=== PATIENT | female | born 1995 | race Caucasian/White ===

== ENCOUNTER 2021-07-18 10:12 | Emergency (ER) | payer OTHER ==
[~2021-07-18] VITALS: Ht 165.1 cm; Wt 51.3 kg
[2021-07-18 10:17] VITALS: BP 121/64
--- NOTE | 2021-07-18 10:45 | NUR ---
26 Y/O F BIB SELF FROM HOME, C/O N&V WITH BLOOD IN EMESIS AND NOSE BLEEDS THAT STARTED TODAY. 10 WEEKS , DISCHARGE, BUT NO BLEEDING. DENIES PAIN AT THIS TIME. DENIES CP, COUGH, CHILLS, FEVERS, SOB, HEMATURIA, DYSURIA, DOUBLE VISION, BLURRY VISION. PMH: DENIES MED: PRENATALS, ANTINAUSEA MEDICATION NKA
--- NOTE | 2021-07-18 10:45 | NUR ---
DR FAY AT BEDSIDE EXAMINING PT
[2021-07-18] MEDS ORDERED: NACL 0.9% 2,000 ML IV ONE (10:55)
[2021-07-18 11:05] LABS: BASOPHILS % (AUTO) 0.3 % (0.0-2.0); EOSINOPHILS % (AUTO) 0.7 % (0.0-4.0); HEMOGLOBIN 12.6 g/dL (12.0-16.0); LYMPHOCYTES % (AUTO) 17.9 % (20.5-51.1); MEAN CORPUSCULAR HEMOGLOBIN 32 pg (27-31); MEAN CORPUSCULAR HGB CONC 34 g/dL (33-37); MEAN CORPUSCULAR VOLUME 94.3 fL (80-94); MONOCYTES # (AUTO) 0.3 K/uL (0.8-1.0); MONOCYTES % (AUTO) 6.1 % (1.7-9.3); NEUTROPHILS # (AUTO) 4.1 K/uL (1.8-7.7); PLATELET COUNT (AUTO) 222 K/uL (140-450); RED BLOOD CELL COUNT(AUTO) 3.92 MIL/uL (4.20-5.40); RED CELL DISTRIBUTION WIDTH 12.2 % (11.6-13.7); WHITE BLOOD COUNT (AUTO) 5.5 K/uL (4.8-10.8)
[2021-07-18 11:18] LABS: APPEARANCE,URINE CLEAR (CLEAR); BILIRUBIN,URINE NEGATIVE (NEGATIVE); BLOOD, URINE NEGATIVE (NEGATIVE); COLOR,URINE YELLOW (YELLOW); LEUKOCYTE ESTERASE ,URINE NEGATIVE (NEGATIVE); NITRITE, URINE NEGATIVE (NEGATIVE); UGLUCOSE NEGATIVE (NEGATIVE)
[2021-07-18 11:27] LABS: ALBUMIN 3.5 g/dL (3.4-5.0); ANION GAP 13.6 (8-16); CARBON DIOXIDE 24.2 mmol/L (21-32); CREATININE 0.6 mg/dL (0.6-1.3); POTASSIUM 3.8 mmol/L (3.5-5.1); TOTAL BILIRUBIN 0.8 mg/dL (0.0-1.0)
--- NOTE | 2021-07-18 12:00 | NUR ---
Patient appears to be resting comfortably in bed. Vital Signs within normal limits. Respirations even and unlabored.
[2021-07-18 13:13] VITALS: BP 121/64
--- NOTE | 2021-07-18 13:13 | NUR ---
Patient discharged with v/s stable. Written and verbal after care instructions given and explained. Patient alert, oriented and verbalized understanding of instructions. Ambulatory with steady gait. All questions addressed prior to discharge. ID band removed. Patient advised to follow up with PMD. Opportunity to ask questions provided and answered.
== END 2021-07-18 13:13 | disposition home or self-care (01) ==
LOC: MED 10:12
DX: R11.2 Nausea with vomiting, unspecified (principal); E86.0 Dehydration
CPT/HCPCS: 36415; 80053; 81003; 81025; 85025; 96360; 99283; J7030

== ENCOUNTER 2022-02-08 16:10 | Inpatient (IN) | payer OTHER ==
[~2022-02-08] VITALS: Ht 165.1 cm; Wt 64.0 kg
[2022-02-08] MEDS ORDERED: PROMETHAZINE 25 MG/ML VIAL IVP PRN (16:50)
[2022-02-08] MEDS ORDERED: CARBOPROST 250 MCG/ML AMP IM PRN (16:50)
[2022-02-08] MEDS ORDERED: METHYLERGONOVINE 0.2 MG/ML AMP IM PRN (16:50)
[2022-02-08] MEDS ORDERED: AMPICILLIN 2,000 MG in NACL 0.9% MINI-BAG PLUS 100 ML IV SCH (16:50)
[2022-02-08] MEDS ORDERED: OXYTOCIN 20 UNITS in LACTATED RINGERS 1,000 ML IV SCH (16:50)
[2022-02-08] MEDS ORDERED: ONDANSETRON 4 MG/2 ML VIAL ONE (17:00)
[2022-02-08] MEDS ORDERED: ONDANSETRON 4 MG/2 ML VIAL IVP PRN (17:00)
[2022-02-08] MEDS ORDERED: MORPHINE SULFATE 5 MG/ML VIAL IVP PRN (17:00)
[2022-02-08] MEDS ORDERED: MORPHINE SULFATE 10 MG/ML VIAL ONE ×3 (17:00→23:23)
[2022-02-08] MEDS ORDERED: AMPICILLIN 2,000 MG VIAL ONE (17:01)
[2022-02-08] MEDS: LACTATED RINGERS 1,000 ML IV SCH (17:12)
[2022-02-08 17:29] LABS: BASOPHILS % (AUTO) 0.2 % (0.0-2.0); EOSINOPHILS % (AUTO) 0.1 % (0.0-4.0); HEMATOCRIT 32.9 % (36-48); HEMOGLOBIN 11.2 g/dL (12.0-16.0); LYMPHOCYTES # (AUTO) 1.3 K/uL (2.5-16.5); LYMPHOCYTES % (AUTO) 15.6 % (20.5-51.1); MEAN CORPUSCULAR HEMOGLOBIN 32 pg (27-31); MEAN CORPUSCULAR HGB CONC 34 g/dL (33-37); MEAN CORPUSCULAR VOLUME 94.1 fL (80-94); MONOCYTES # (AUTO) 0.4 K/uL (0.8-1.0); MONOCYTES % (AUTO) 5.2 % (1.7-9.3); NEUTROPHILS # (AUTO) 6.7 K/uL (1.8-7.7); NEUTROPHILS % (AUTO) 78.9 % (42.2-75.2); PLATELET COUNT (AUTO) 161 K/uL (140-450); RED CELL DISTRIBUTION WIDTH 12.9 % (11.6-13.7); WHITE BLOOD COUNT (AUTO) 8.5 K/uL (4.8-10.8)
[2022-02-08 17:30] VITALS: BP 118/77
[2022-02-08 20:53] LABS: APPEARANCE,URINE CLEAR (CLEAR); BILIRUBIN,URINE NEGATIVE (NEGATIVE); BLOOD, URINE TRACE-I (NEGATIVE); LEUKOCYTE ESTERASE ,URINE NEGATIVE (NEGATIVE); NITRITE, URINE NEGATIVE (NEGATIVE); PH,URINE 6.5 (5.0-9.0); UGLUCOSE NEGATIVE (NEGATIVE)
[2022-02-08 20:54] LABS: COLOR,URINE AMBER (YELLOW)
[2022-02-08] MEDS ORDERED: AMPICILLIN 1,000 MG VIAL ONE (20:58)
[2022-02-08] MEDS ORDERED: OXYTOCIN 20 UNITS/LR PREMIX 1,000 ML IV ONE (21:25)
[2022-02-08] MEDS ORDERED: AMPICILLIN 1,000 MG in NACL 0.9% 50 ML IV SCH (21:30)
[2022-02-08 21:51] LABS: RBC,URINE 0-5 /HPF (0-5); WBC,URINE NONE SEEN /HPF (0-5)
[2022-02-09] MEDS ORDERED: AMPICILLIN 1,000 MG in NACL 0.9% 50 ML IV SCH (01:00)
[2022-02-09] MEDS: LACTATED RINGERS 1,000 ML IV SCH (02:10)
[2022-02-09] MEDS ORDERED: MORPHINE SULFATE 10 MG/ML VIAL ONE ×2 (02:30→05:32)
[2022-02-09 05:38] VITALS: BP 99/56
--- NOTE | 2022-02-09 08:50 | NUR ---
PATIENT HAS BEEN SCREENED AND CATEGORIZED LOW NUTRITION RISK. PATIENT WILL BE SEEN WITHIN 7 DAYS OF ADMISSION. 02/15/[address]
[2022-02-09] MEDS ORDERED: ROPIVACAINE 0.2%/NS PREMIX 200 ML EPI ONE (08:58)
[2022-02-09] MEDS ORDERED: fentaNYL citrate 0.05 MG/ML VIAL ONE (09:07)
[2022-02-09] MEDS ORDERED: BENZOCAINE/MENTHOL 20%-0.5% 60 GM CAN TP PRN (17:30)
[2022-02-09] MEDS ORDERED: TEMAZEPAM 15 MG CAP PO PRN (17:30)
[2022-02-09] MEDS ORDERED: METHYLERGONOVINE 0.2 MG TAB PO PRN (17:30)
[2022-02-09] MEDS ORDERED: oxyCODONE/APAP 5/325 MG 1 TAB TAB PO PRN ×2 (17:30)
[2022-02-09] MEDS ORDERED: METHYLERGONOVINE 0.2 MG/ML AMP IM PRN (17:30)
[2022-02-09] MEDS ORDERED: OXYTOCIN 10 UNITS/ML VIAL IM PRN (17:30)
[2022-02-09] MEDS: IBUPROFEN 800 MG TAB PO PRN (19:56)
[2022-02-09] MEDS ORDERED: DOCUSATE SOD/SENNA 50/8.6 MG 1 TAB PO SCH (21:00)
[2022-02-10 05:42] LABS: HEMATOCRIT 28.9 % (36-48); HEMOGLOBIN 9.8 g/dL (12.0-16.0)
[2022-02-10 12:08] LABS: HEPATITIS B SURFACE ANTIGEN Negative (Negative)
[2022-02-10] MEDS: IBUPROFEN 800 MG TAB PO PRN (20:25)
--- NOTE | 2022-02-11 10:00 | NUR ---
DC PLANNING PATIENT IS A 27-YEAR-OLD FEMALE ADMITTED IN THE [facility]/ED ON 02/08/2022 DUE TO ACTIVE LABOR WITH 39 WEEKS AND 6 DAYS. SW MEET WITH PATIENT AND HER SIGNIFICANT OTHER AT BED SIDE WITH BABY GIRL TO EDUCATE PATIENT AND SIGNIFICANT OTHER ABOUT POTENTIAL ISSUES WITH POST-, DISCUSS AND INFORMED PATIENT ABOUT SERVICES AVAILABLE IN HER AREA WITH MENTAL HEALTH, PARENTING CLASSES AND ADDITIONAL RESOURCES FOR MATERNAL INFANT ASSISTANCE. SW DISCUSSED WITH PATIENT AND FATHER OF BABY ABOUT POTENTIAL ISSUES WITH SUBSTANCES USE. BOTH PARENTS PRESENT DENIED HAVING AN ISSUE WITH SUBSTANCES AND ACKNOWLEDGE INFORMATION PROVIDED TO THEM BY SW ABOUT HOSPITAL PROTOCOLS EDUCATING PATIENT'S ABOUT ISSUES AND PREVENTING CPS INVOLVEMENT WHEN A BABY IS EXPOSED TO SUBSTANCES. MOTHER WAS APPRECIATIVE OF INFORMATION AND RESOURCES PROVIDED BY THESE NURSE LDR AND AGREED TO FOLLOW UP WITH AGENCIES TO GET SERVICES AVAILABLE FOR MOTHER AND CHILD. PATIENT REPORTED HAVING FAMILY SUPPORT FROM HER SISTER JUSTUS COHN WHO IS ONE OF HER EMERGENCY CONTACTS WELL [place] FATHER OF THE BABY AND SIGNIFICANT OTHER AT BEDSIDE DURING THE VISIT. PATIENT REPORTED NOT HAVING ANY A.D. AND DECLINED THE A.D. INF. PACKET PROVIDED BY [facility]. PATIENT REPORTED THAT SHE IS INDEPENDENT AND AMBULATORY. REPORTED NOT HAVING OR NEEDING ANY DME. PATIENT REPORTED NOT TAKING ANY MEDICATIONS NOW BUT HAVING NO ISSUES GETTING OR TAKING MEDICATIONS WHEN THEY ARE PRESCRIBED. PATIENT REPORTED THAT HER SIGNIFICANT OTHER MR. SAMAYOA WILL BE PICKING HER AND BABY WHEN SHE IS DC FROM [facility] TO TAKE THEM HOME. [facility] WILL FOLLOW UP NEEDED. Addendum: 02/11/22 at 1249 by Shayla LR Amended: Links added.
== END 2022-02-11 17:00 | disposition home or self-care (01) | DRG 807 ==
LOC: OBSVTOIN 16:10 → MLD 16:10 → MFCC 02-09 20:50
PROVIDERS: ADMIT Obstetrics & Gynecology; ATTEND Obstetrics & Gynecology
PROC: 10D07Z6 Extraction of Products of Conception, Vacuum, Via Natural or Artificial Opening (ICD-10-PCS; principal; 2022-02-09)
PROC: 3E0R3BZ Introduction of Anesthetic Agent into Spinal Canal, Percutaneous Approach (ICD-10-PCS; 2022-02-09)
PROC: 00HU33Z Insertion of Infusion Device into Spinal Canal, Percutaneous Approach (ICD-10-PCS; 2022-02-09)
PROC: 10907ZC Drainage of Amniotic Fluid, Therapeutic from Products of Conception, Via Natural or Artificial Opening (ICD-10-PCS; 2022-02-09)
PROC: 0HQ9XZZ Repair Perineum Skin, External Approach (ICD-10-PCS; 2022-02-09)
DX: O76 Abnormality in fetal heart rate and rhythm complicating labor and delivery (principal); Z37.0 Single live birth; Z3A.39 39 weeks gestation of pregnancy; Z20.822 Contact with and (suspected) exposure to COVID-19; O70.0 First degree perineal laceration during delivery
CPT/HCPCS: 36415; 51702; 81001; 85018; 85025; 86592; 86762; 86886; 86900; 86901; 87340; 87653-90; J0290; J2210; J2270; J2405; J2590; J2795; J3010